=== PATIENT | female | born 1995 | race Caucasian/White ===

== ENCOUNTER 2018-09-18 21:06 | Inpatient (IN) | payer MEDICAID ==
[~2018-09-18] VITALS: Ht 165.1 cm; Wt 122.0 kg
[2018-09-19] MEDS ORDERED: ZOLPIDEM TARTRATE 10 MG TABLET PO PRN (01:45)
[2018-09-19] MEDS ORDERED: HALOPERIDOL 5 MG TABLET PO PRN (01:45)
[2018-09-19] MEDS ORDERED: LORazepam 2 MG TABLET PO PRN (01:45)
[2018-09-19 03:23] VITALS: BP 129/70
[2018-09-19 05:43] VITALS: BP 129/74
[2018-09-19 08:13] VITALS: BP 121/78
[2018-09-19 16:43] VITALS: BP 110/61
[2018-09-20 06:00] VITALS: BP 112/65
[2018-09-20 08:15] LABS: BASOPHILS % (AUTO) 0.8 % (0.0-2.0); EOSINOPHILS % (AUTO) 1.7 % (1.0-6.0); HEMATOCRIT 30.1 % (36-46); HEMOGLOBIN 9.6 g/dL (12.0-16.0); LYMPHOCYTES % (AUTO) 26.8 % (22.0-44.0); MEAN CORPUSCULAR HEMOGLOBIN 22.8 pg (26.0-34.0); MEAN CORPUSCULAR HGB CONC 31.8 G/dL (31.0-37.0); MEAN CORPUSCULAR VOLUME 72 fL (80-100); MONOCYTES # (AUTO) 0.5 K/uL (0.1-1.0); NEUTROPHILS # (AUTO) 4.7 K/uL (1.8-7.7); NEUTROPHILS % (AUTO) 63.7 % (40.0-70.0); PLATELET COUNT (AUTO) 458 K/uL (150-450); RED BLOOD CELL COUNT(AUTO) 4.19 MIL/uL (4.00-5.20); RED CELL DISTRIBUTION WIDTH 16.9 % (11.5-14.5)
[2018-09-20 08:57] VITALS: BP 126/93
[2018-09-20] MEDS ORDERED: RisperiDONE 2 MG TABLET PO SCH (09:00)
[2018-09-20] MEDS ORDERED: RISP2 PO (09:25)
[2018-09-20 09:42] LABS: ALANINE AMINOTRANSFERASE 23 U/L (12-78); ALBUMIN 3.4 g/dL (3.4-5.0); ALKALINE PHOSPHATASE 114 U/L (46-116); ANION GAP 12 mmol/L (8-16); ASPARTATE AMINOTRANSFERASE 14 U/L (15-37); BILIRUBIN,TOTAL 0.3 mg/dL (0.1-1.0); CALCIUM, TOTAL 9.2 mg/dL (8.8-10.5); CARBON DIOXIDE 26 mmol/L (22-29); CHLORIDE 101 mmol/L (98-107); CREATININE 0.78 mg/dL (0.60-1.30); FREE T4 (FREE THYROXINE) 1.04 ng/dL (0.76-1.46); GLOMERULAR FILTR. RATE CALC > 60 mL/min (>60); GLUCOSE,RANDOM 95 mg/dL (70-110); HCG,QUANTITATIVE < 1 mIU/mL (0-6); POTASSIUM 4.1 mmol/L (3.5-5.1); SODIUM SERUM 139 mmol/L (136-145); THYROID STIMULATING HORMONE 1.35 uIU/mL (0.36-3.74); TOTAL PROTEIN, SERUM 7.3 g/dL (6.4-8.2); UREA NITROGEN, BLOOD 14 mg/dL (7-18)
== END 2018-09-20 13:20 | disposition home or self-care (01) | DRG 750 ==
LOC: B3A 09-19 01:31 → B2S 09-19 13:34
PROVIDERS: ADMIT Psychiatry & Neurology Psychiatry; ATTEND Psychiatry & Neurology Psychiatry
DX: F20.0 Paranoid schizophrenia (principal); D64.9 Anemia, unspecified; F17.200 Nicotine dependence, unspecified, uncomplicated
CPT/HCPCS: 84439; 84443

== ENCOUNTER 2021-09-05 14:34 | Inpatient (IN) | payer MEDICAID ==
[~2021-09-05] VITALS: Ht 165.1 cm; Wt 120.0 kg
[~2021-09-05 14:34] MED LIST: RISP2TAB45 PO
[2021-09-05] MEDS ORDERED: GABA-1181 PO (18:16)
[2021-09-05] MEDS ORDERED: RISP1TAB48 PO (18:16)
[2021-09-05] MEDS ORDERED: QUET100T PO (18:16)
[2021-09-05] MEDS ORDERED: INFLUENZA VIRUS VACCINE QVS 2021-22 (6MO+)/PF 60 MCG/0.5 ML SYRINGE IM. ONE ×2 (18:30→21:30)
[2021-09-05 19:34] VITALS: BP 116/77
[2021-09-05 19:37] VITALS: BP 116/77
[2021-09-05] MEDS ORDERED: TUBERCULIN, PURIFIED PROTEIN DERIVATIVE 5 TU/0.1 ML SYRINGE ID ONE (20:15)
[2021-09-05] MEDS ORDERED: HydrOXYzine PAMOATE 50 MG CAPSULE PO PRN (20:15)
[2021-09-05] MEDS ORDERED: ZOLPIDEM TARTRATE 10 MG TABLET PO PRN (20:15)
[2021-09-05] MEDS ORDERED: PROMETHAZINE HCL 25 MG TABLET PO PRN (20:15)
[2021-09-05] MEDS ORDERED: OLANZapine 5 MG RAPDIS TABLET PO PRN (20:15)
[2021-09-05] MEDS ORDERED: OLANZapine 5 MG RAPDIS TABLET PO ONE (20:15)
[2021-09-05] MEDS ORDERED: GuaiFENesin/D-METHORPHAN [SUGAR-FREE] 200-20MG/10 ML SYRUP UDCUP PO PRN (20:15)
[2021-09-05] MEDS: MELATONIN 5 MG TABLET PO SCH (20:47)
[2021-09-05] MEDS ORDERED: PNEUMOCOCCAL VACCINE POLYVALENT 0.5 ML VIAL [PPSV23] IM. ONE (21:30)
[2021-09-06 00:08] VITALS: BP 123/63
[2021-09-06 00:29] VITALS: BP 123/63
[2021-09-06] MEDS: LORazepam 2 MG TABLET PO PRN (00:38)
[2021-09-06 06:29] VITALS: BP 128/75
[2021-09-06 07:18] LABS: BASOPHILS % (AUTO) 0.9 % (0.0-2.0); EOSINOPHILS % (AUTO) 1.5 % (1.0-6.0); HEMATOCRIT 30.4 % (36-46); HEMOGLOBIN 9.6 g/dL (12.0-16.0); LYMPHOCYTES # (AUTO) 1.4 K/uL (1.0-4.8); LYMPHOCYTES % (AUTO) 20.4 % (22.0-44.0); MEAN CORPUSCULAR HEMOGLOBIN 22.8 pg (26.0-34.0); MEAN CORPUSCULAR HGB CONC 31.7 G/dL (31.0-37.0); MEAN CORPUSCULAR VOLUME 72 fL (80-100); MONOCYTES # (AUTO) 0.7 K/uL (0.1-1.0); MONOCYTES % (AUTO) 9.5 % (2.0-9.0); NEUTROPHILS # (AUTO) 4.6 K/uL (1.8-7.7); NEUTROPHILS % (AUTO) 67.7 % (40.0-70.0); PLATELET COUNT (AUTO) 248 K/uL (150-450); RED BLOOD CELL COUNT(AUTO) 4.22 MIL/uL (4.00-5.20); RED CELL DISTRIBUTION WIDTH 19.6 % (11.5-14.5)
[2021-09-06 07:33] LABS: HEMOGLOBIN A1C 5.7 % (3.8-5.6)
[2021-09-06 07:58] LABS: ALANINE AMINOTRANSFERASE 71 U/L (12-78); ALBUMIN 3.2 g/dL (3.4-5.0); ALKALINE PHOSPHATASE 146 U/L (46-116); ANION GAP 11 mmol/L (8-16); ASPARTATE AMINOTRANSFERASE 15 U/L (15-37); BILIRUBIN,TOTAL 0.2 mg/dL (0.1-1.0); CALCIUM, TOTAL 8.9 mg/dL (8.8-10.5); CARBON DIOXIDE 27 mmol/L (22-29); CHLORIDE 102 mmol/L (98-107); CHOL/HDL RATIO 3.9 (3.9-5.7); CHOLESTEROL 124 mg/dL (131-200); CREATININE 0.73 mg/dL (0.60-1.30); GLOMERULAR FILTR. RATE CALC > 60 mL/min (>60); GLUCOSE,RANDOM 118 mg/dL (70-110); HDL CHOLESTEROL 32 mg/dL (40-60); LDL CHOL (CALC.) 67 mg/dL (0-130); POTASSIUM 4.2 mmol/L (3.5-5.1); SODIUM SERUM 140 mmol/L (136-145); THYROID STIMULATING HORMONE 1.46 uIU/mL (0.36-3.74); TOTAL PROTEIN, SERUM 6.3 g/dL (6.4-8.2); TRIGLYCERIDES 124 mg/dL (15-150); UREA NITROGEN, BLOOD 12 mg/dL (7-18)
[2021-09-06 08:29] VITALS: BP 107/53
[2021-09-06] MEDS: OMEGA-3/DHA/EPA/FISH OIL 1,000 MG CAPSULE PO SCH (08:51)
[2021-09-06] MEDS: MULTIVITAMINS WITH MINERALS, THERAPEUTIC TABLET PO SCH (08:51)
[2021-09-06] MEDS: OLANZapine 5 MG RAPDIS TABLET PO SCH ×2 (08:52→12:44)
[2021-09-06] MEDS: FOLIC ACID 1 MG TABLET PO SCH (08:52)
[2021-09-06] MEDS: THIAMINE 100 MG TABLET PO SCH ×2 (08:52→16:01)
[2021-09-06] MEDS: NALTREXONE HCL 50 MG TABLET PO SCH (08:52)
[2021-09-06 08:55] VITALS: BP 104/63
[2021-09-06] MEDS ORDERED: RisperiDONE 1 MG TABLET PO PRN (14:45)
[2021-09-06] MEDS: GABAPENTIN 300 MG CAPSULE PO SCH ×2 (16:01→20:10)
[2021-09-06] MEDS: QUEtiapine FUMARATE 100 MG TABLET PO SCH (16:02)
[2021-09-06] MEDS: RisperiDONE 2 MG TABLET PO SCH (16:02)
[2021-09-06 16:03] VITALS: BP 120/67
[2021-09-06] MEDS: MELATONIN 5 MG TABLET PO SCH (20:10)
[2021-09-07 00:38] VITALS: BP 110/62
[2021-09-07 08:05] VITALS: BP 121/71
[2021-09-07] MEDS: THIAMINE 100 MG TABLET PO SCH ×2 (08:07→16:09)
[2021-09-07] MEDS: GABAPENTIN 300 MG CAPSULE PO SCH ×5 (08:07→20:10)
[2021-09-07] MEDS: FOLIC ACID 1 MG TABLET PO SCH (08:07)
[2021-09-07] MEDS: NALTREXONE HCL 50 MG TABLET PO SCH (08:07)
[2021-09-07] MEDS: QUEtiapine FUMARATE 100 MG TABLET PO SCH ×2 (08:07→16:09)
[2021-09-07] MEDS: RisperiDONE 2 MG TABLET PO SCH ×2 (08:07→16:09)
[2021-09-07] MEDS: OMEGA-3/DHA/EPA/FISH OIL 1,000 MG CAPSULE PO SCH (08:07)
[2021-09-07] MEDS: MULTIVITAMINS WITH MINERALS, THERAPEUTIC TABLET PO SCH (08:07)
[2021-09-07] MEDS: LORazepam 2 MG TABLET PO PRN (09:01)
[2021-09-07 16:01] VITALS: BP 106/71
[2021-09-07] MEDS: MELATONIN 5 MG TABLET PO SCH (20:10)
[2021-09-08 01:43] VITALS: BP 113/63
[2021-09-08 07:16] VITALS: BP 128/68
[2021-09-08] MEDS: MULTIVITAMINS WITH MINERALS, THERAPEUTIC TABLET PO SCH (08:07)
[2021-09-08] MEDS: NALTREXONE HCL 50 MG TABLET PO SCH (08:07)
[2021-09-08] MEDS: THIAMINE 100 MG TABLET PO SCH ×2 (08:07→16:03)
[2021-09-08] MEDS: LORazepam 2 MG TABLET PO PRN (08:07)
[2021-09-08] MEDS: GABAPENTIN 300 MG CAPSULE PO SCH ×3 (08:07→16:03)
[2021-09-08] MEDS: OMEGA-3/DHA/EPA/FISH OIL 1,000 MG CAPSULE PO SCH (08:08)
[2021-09-08] MEDS: QUEtiapine FUMARATE 100 MG TABLET PO SCH ×2 (08:08→16:03)
[2021-09-08] MEDS: FOLIC ACID 1 MG TABLET PO SCH (08:08)
[2021-09-08] MEDS: RisperiDONE 2 MG TABLET PO SCH ×2 (08:08→16:03)
[2021-09-08 08:58] VITALS: BP 126/72
[2021-09-08] MEDS ORDERED: NALT50TA PO (14:34)
[2021-09-08] MEDS ORDERED: OMEG-108 PO (14:34)
[2021-09-08] MEDS ORDERED: MELA5TAB40 PO (14:34)
[2021-09-08] MEDS ORDERED: RISP2TAB86 PO (14:34)
[2021-09-08] MEDS ORDERED: GABA-1181 PO ×2 (14:34)
[2021-09-08 16:03] VITALS: BP 130/87
== END 2021-09-08 17:05 | disposition home or self-care (01) | DRG 750 ==
LOC: B2S 18:37
PROVIDERS: ADMIT Psychiatry & Neurology Psychiatry; ATTEND Psychiatry & Neurology Psychiatry
DX: F25.9 Schizoaffective disorder, unspecified (principal); Z91.19 Patient's noncompliance with other medical treatment and regimen; D64.9 Anemia, unspecified; Z20.822 Contact with and (suspected) exposure to COVID-19; F17.210 Nicotine dependence, cigarettes, uncomplicated; F41.9 Anxiety disorder, unspecified; F60.0 Paranoid personality disorder; G47.30 Sleep apnea, unspecified; I10 Essential (primary) hypertension; J44.9 Chronic obstructive pulmonary disease, unspecified; Z55.9 Problems related to education and literacy, unspecified; Z59.9 Problem related to housing and economic circumstances, unspecified; Z63.9 Problem related to primary support group, unspecified; Z65.3 Problems related to other legal circumstances; Z91.51 Personal history of suicidal behavior
CPT/HCPCS: 80053; 80061; 83036; 84436; 84443; 85025; 86592; 87081; Q9967

== ENCOUNTER 2024-05-05 00:33 | Emergency (ER) | payer MEDICAID, OTHER ==
[~2024-05-05] VITALS: Ht 162.6 cm; Wt 127.3 kg
[~2024-05-05 00:33] MED LIST changes: +GABA-1181 PO; +MELA5TAB40 PO; +NALT50TA6 PO; +OMEG-135 PO; +RISP-32 PO; -RISP2TAB45 PO
[2024-05-05 00:39] VITALS: BP 110/70; PULSE 111; RESP 18; TEMP 97.9; O2SAT 97
[2024-05-05] MEDS ORDERED: QUET300T2 PO (00:53)
[2024-05-05] MEDS ORDERED: FAMO10TA39 PO (00:53)
[2024-05-05] MEDS ORDERED: LORA-1000 PO (01:28)
[2024-05-05] MEDS: LORazepam 1 MG TABLET PO ONE (01:43)
== END 2024-05-05 02:09 | disposition home or self-care (01) ==
LOC: EMS 00:33
DX: G47.00 Insomnia, unspecified (principal); F31.9 Bipolar disorder, unspecified; F17.210 Nicotine dependence, cigarettes, uncomplicated
CPT/HCPCS: 99283